=== PATIENT | female | born 1960 | race Caucasian/White ===

== ENCOUNTER 2019-05-11 12:51 | Emergency (ER) | payer OTHER ==
[~2019-05-11] VITALS: Ht 175.3 cm; Wt 95.3 kg
[2019-05-11 12:53] VITALS: BP 142/84
[2019-05-11] MEDS ORDERED: PROMS25 WY RECTAL (13:29)
== END 2019-05-11 13:56 | disposition home or self-care (01) ==
LOC: ER 12:51
DX: M54.5 Low back pain (principal); G89.29 Other chronic pain; F17.210 Nicotine dependence, cigarettes, uncomplicated; Z76.0 Encounter for issue of repeat prescription; Z88.2 Allergy status to sulfonamides; Z88.1 Allergy status to other antibiotic agents; Z88.8 Allergy status to other drugs, medicaments and biological substances

== ENCOUNTER 2019-05-13 15:17 | Emergency (ER) | payer OTHER ==
[~2019-05-13] VITALS: Ht 175.3 cm; Wt 99.8 kg
[~2019-05-13 15:17] MED LIST: PROMS25 WY RECTAL
[2019-05-13] MEDS ORDERED: DURAGESIC1 EAC3 TRANSDERM (15:41)
[2019-05-13] MEDS ORDERED: BREO ELLIPTA 11 EACH INH (15:41)
[2019-05-13] MEDS ORDERED: ESTRADIOL 1 MG T1 M1 PO (15:41)
[2019-05-13] MEDS ORDERED: ESZOPICLONE3 MG PO (15:42)
[2019-05-13] MEDS ORDERED: NEURONTIN600 MG PO (15:42)
[2019-05-13] MEDS ORDERED: LASIX 40 MG TAB40 M2 PO (15:42)
[2019-05-13] MEDS ORDERED: MEDROXYPROGESTER5 MG PO (15:43)
[2019-05-13] MEDS ORDERED: METFORMIN HCL500 MG PO (15:43)
[2019-05-13] MEDS ORDERED: NYSTATIN100000 UNI SW&SWALLOW (15:44)
[2019-05-13] MEDS ORDERED: NORCO 10-325 T1 EACH PO (15:44)
[2019-05-13] MEDS ORDERED: NEXIUM40 MG PO (15:44)
[2019-05-13] MEDS ORDERED: TRAZODONE HCL100 MG PO (15:45)
[2019-05-13] MEDS ORDERED: ASPIR 8181 MG PO (15:45)
[2019-05-13] MEDS ORDERED: PREDNISONE 10 M10 MG PO (15:45)
[2019-05-13] MEDS ORDERED: COMBIVENT INH (15:46)
[2019-05-13] MEDS ORDERED: ACCUNEB SO1.25 MG/1 INH (15:47)
[2019-05-13] MEDS ORDERED: LANTUS100 UNIT/M SUBQ (15:47)
[2019-05-13] MEDS ORDERED: LEVALBUTER1.25 MG/0. INH (15:47)
[2019-05-13] MEDS ORDERED: ONDANSETRON HCL4 M2 PO (15:48)
[2019-05-13 16:52] VITALS: BP 99/65
== END 2019-05-13 16:57 | disposition home or self-care (01) ==
LOC: ER 15:17
DX: M54.5 Low back pain (principal); F17.210 Nicotine dependence, cigarettes, uncomplicated; Z76.0 Encounter for issue of repeat prescription; Z88.1 Allergy status to other antibiotic agents; Z88.2 Allergy status to sulfonamides; Z88.8 Allergy status to other drugs, medicaments and biological substances